=== PATIENT | female | born 1990 | race African-American/Black ===

== ENCOUNTER 2021-07-08 03:19 | Emergency (ER) | payer OTHER ==
[~2021-07-08] VITALS: Ht 170.2 cm; Wt 64.4 kg
[2021-07-08] MEDS ORDERED: KETOROLAC TROMETHAMINE INJ 30 MG/ML VIAL IM ONE (04:00)
[2021-07-08] MEDS ORDERED: KETOROLAC TROMETHAMINE INJ 60 MG/2 ML VIAL IM ONE (04:23)
[2021-07-08] MEDS ORDERED: FENTANYL PF 100MCG/2ML AMPUL ONE (04:25)
[2021-07-08] MEDS ORDERED: FENTANYL PF 100MCG/2ML AMPUL IM ONE (04:30)
[2021-07-08] MEDS ORDERED: OXYC-128 PO (04:50)
--- NOTE | 2021-07-08 07:24 | NUR ---
pt instructions given with rx. pt able to ambulate with crutches. left in stable condition
[2021-07-08 07:25] VITALS: BP 117/67
== END 2021-07-08 07:26 | disposition home or self-care (01) ==
LOC: ER 03:22
DX: S82.842A Displaced bimalleolar fracture of left lower leg, initial encounter for closed fracture (principal); Z60.2 Problems related to living alone; Z79.899 Other long term (current) drug therapy; W18.39XA Other fall on same level, initial encounter; Y93.89 Activity, other specified; Y92.89 Other specified places as the place of occurrence of the external cause; Y99.8 Other external cause status
CPT/HCPCS: 29515; 73610; 96372 ×2; 99291; J1885; J3010